=== PATIENT | male | born 1965 | race Caucasian/White ===

== ENCOUNTER 2020-06-12 16:07 | Observation (INO) ==
[2020-06-12] MEDS ORDERED: Naloxone 0.4 MG/ML INJ IVP PRN (18:13)
[2020-06-12] MEDS ORDERED: Ondansetron 4 MG/2 ML VIAL IVP PRN (18:13)
[2020-06-12] MEDS ORDERED: Ketorolac 15 MG/ML VIAL IVP PRN (18:13)
[2020-06-12] MEDS ORDERED: Ringers Solution, Lactated 1,000 ML IVC SCH (18:15)
[2020-06-12] MEDS ORDERED: Nicotine 2 MG GUM BC PRN (19:16)
[2020-06-12] MEDS: Nicotine 14 MG PATCH.TD24 TD SCH (19:58)
[2020-06-12] MEDS: tiZANidine 4 MG TABLET PO SCH (21:25)
[2020-06-12] MEDS: Metoprolol XL (24 HR) Succ 50 MG TAB.ER.24H PO SCH (21:39)
[2020-06-12] MEDS ORDERED: amLODIPine 5 MG TABLET PO SCH (21:45)
[2020-06-13 01:23] LABS: Hematocrit 38.4 % (37.5-50.1); Hemoglobin 12.8 g/dL (12.9-16.9); Mean Corpuscular HGB Conc 33.3 g/dL (31.6-35.5); Mean Corpuscular Hemoglobin 29.4 pg (28.0-33.3); Mean Corpuscular Volume 88.3 fL (83.0-100.0); Mean Platelet Volume 10.1 fL (9.4-12.4); Platelet Count 199 K/mcL (140-400); Red Blood Count 4.35 M/mcL (4.19-5.50); Red Cell Distribution Width 12.3 % (11.5-14.5); White Blood Count 11.4 K/mcL (4.3-11.1)
[2020-06-13 01:28] LABS: INR 1.3; Prothrombin Time 14.2 Seconds (9.4-12.1)
[2020-06-13 01:42] LABS: BUN/Creatinine Ratio 15 (6-26); Blood Urea Nitrogen 17 mg/dL (6-20); Calcium 8.6 mg/dL (8.6-10.3); Carbon Dioxide 26 mEq/L (23-29); Chloride 104 mEq/L (98-107); Glucose 99 mg/dL (70-105); Osmolality,Calculated 288 (280-300); Potassium 3.9 mEq/L (3.5-5.1); Sodium 138 mEq/L (136-145); eGFR For African Americans > 60 (> 60); eGFR For Non-African Americans > 60 (> 60)
[2020-06-13] MEDS ORDERED: Isovue-300 50ML VIAL ONE (07:04)
[2020-06-13] MEDS: Metoprolol XL (24 HR) Succ 50 MG TAB.ER.24H PO SCH (07:05)
[2020-06-13] MEDS ORDERED: Clindamycin 900 MG/50 ML 900 MG/50 ML IV.SOLN IVPB ONE ×2 (07:12→07:45)
[2020-06-13] MEDS ORDERED: Lidocaine -MPF 2% 2 ML VIAL ONE (07:13)
[2020-06-13] MEDS ORDERED: Dexamethasone 4 MG/ML VIAL ONE (07:13)
[2020-06-13] MEDS ORDERED: *HR* FentaNYL (PF) 100 MCG/2 ML VIAL ONE (07:13)
[2020-06-13] MEDS ORDERED: *HR* Succinylcholine 200 MG/10 ML VIAL IVP ONE (07:13)
[2020-06-13] MEDS ORDERED: *HR* Propofol 200 MG/20 ML VIAL IVP ONE ×2 (07:13)
[2020-06-13] MEDS ORDERED: Ondansetron 4 MG/2 ML VIAL ONE (07:13)
[2020-06-13] MEDS ORDERED: *HR* Labetalol 20 MG/4 ML SYRINGE IVP PRN (08:06)
[2020-06-13] MEDS ORDERED: Ondansetron 4 MG/2 ML VIAL IVP PRN ×2 (08:06→10:34)
[2020-06-13] MEDS ORDERED: *HR* Promethazine 25 MG/ML VIAL IVP PRN (08:06)
[2020-06-13] MEDS ORDERED: *HR* HYDROmorphone (PF) 1 MG/ML SYRINGE IVP PRN (08:06)
[2020-06-13] MEDS ORDERED: *HR* OxyCODONE Immed Rel 5 MG TABLET PO PRN (08:06)
[2020-06-13 08:59] VITALS: BP 134/89
[2020-06-13] MEDS: tiZANidine 4 MG TABLET PO SCH (09:00)
[2020-06-13] MEDS: Nicotine 14 MG PATCH.TD24 TD SCH (10:33)
[2020-06-13] MEDS ORDERED: Naloxone 0.4 MG/ML INJ IVP PRN (10:34)
[2020-06-13] MEDS ORDERED: Nicotine 2 MG GUM BC PRN (10:34)
[2020-06-13] MEDS ORDERED: Ketorolac 15 MG/ML VIAL IVP PRN (10:34)
[2020-06-13] MEDS ORDERED: tiZANidine 4 MG TABLET PO SCH (13:00)
[2020-06-13] MEDS ORDERED: amLODIPine 5 MG TABLET PO SCH (21:00)
[2020-06-13] MEDS ORDERED: Metoprolol XL (24 HR) Succ 50 MG TAB.ER.24H PO SCH (21:00)
[2020-06-14] MEDS ORDERED: Nicotine 14 MG PATCH.TD24 TD SCH (09:00)
== END 2020-06-13 11:49 | disposition home or self-care (01) ==
LOC: 3BNU
PROVIDERS: ADMIT Internal Medicine; ATTEND Internal Medicine